=== PATIENT | male | born 1995 | race Two or more races ===

== ENCOUNTER 2023-08-13 19:47 | Emergency (ER) | payer SELFPAY ==
[~2023-08-13] VITALS: Ht 170.2 cm; Wt 65.0 kg
[2023-08-13 19:52] VITALS: BP 125/83; PULSE 77; RESP 16; O2SAT 97
[2023-08-14] MEDS ORDERED: MORPHINE SULFATE 4 MG/ML SYR/VIAL IV ONE (03:45)
[2023-08-14] MEDS ORDERED: SODIUM CHLORIDE 0.9% 1,000 ML IV ONE (03:45)
[2023-08-14] MEDS ORDERED: ONDANSETRON HCL 4 MG/2 ML VIAL IV ONE (03:45)
[2023-08-14 04:08] LABS: Basophils # (auto) 0 10 ^3/uL (0-0.2); Basophils % (auto) 0.6 % (0.0-2.0); Eosinophils # (auto) 0.2 10 ^3/uL (0-0.8); Eosinophils % (auto) 3.9 % (0.0-7.0); Hematocrit 42.4 % (41.0-53.0); Hemoglobin 14.1 g/dL (13.5-17.5); Lymphocytes # (auto) 1.9 10 ^3/uL (0.4-5.4); Lymphocytes % (auto) 38.8 % (10.0-50.0); Mean Corpuscular Hemoglobin 29.9 pg (28.0-32.0); Mean Corpuscular Hgb Conc. 33.3 g/dL (32.0-36.0); Mean Corpuscular Volume 89.8 fL (80.0-100.0); Monocytes # (auto) 0.5 10 ^3/uL (0-1.3); Monocytes % (auto) 9.6 % (0.0-12.0); Neutrophils # (auto) 2.3 10 ^3/uL (1.6-8.6); Neutrophils % (auto) 47.1 % (37.0-80.0); Nucleated Red Blood Cells % 0.1 %; Red Blood Cells 4.72 10^6/uL (4.5-5.90); Red Cell Distribution Width 14.2 % (11.8-14.3); White Blood Cell 4.9 10^3/uL (4.4-10.8)
[2023-08-14 04:42] LABS: Alanine Aminotransferase 43 U/L (7-40); Albumin 4.3 g/dL (3.2-4.8); Alkaline Phosphatase 71 U/L (46-116); Anion Gap 4 (5-15); Aspartate Aminotransferase 79 U/L (13-40); BUN/Creatinine Ratio 18.7 (10.0-20.0); Blood Urea Nitrogen 17 mg/dL (9-23); Calcium 9.7 mg/dL (8.7-10.4); Carbon Dioxide 29 mmol/L (20-30); Chloride 106 mmol/L (98-107); Glucose 101 mg/dL (74-106); Lipase 59 U/L (12-53); Sodium 139 mmol/L (136-145)
[2023-08-14 04:43] LABS: Bilirubin, Total 0.3 mg/dL (0.2-1.0); Total Protein 6.9 g/dL (5.7-8.2)
[2023-08-14] MEDS ORDERED: IBUP-1455 PO (06:04)
[2023-08-14] MEDS ORDERED: ZOFR4T PO (06:04)
[2023-08-14] MEDS ORDERED: OMEP-434 PO (06:04)
[2023-08-15] MEDS ORDERED: DICY10CA PO (01:36)
[2023-08-15] MEDS ORDERED: ZOFR4T PO (01:36)
[2023-08-15] MEDS ORDERED: ACET500T58 PO (01:36)
== END 2023-08-14 06:26 | disposition left against medical advice (07) ==
LOC: ER 19:47 → EDBD 19:47 → ER 08-14 02:32
DX: K85.90 Acute pancreatitis without necrosis or infection, unspecified (principal); F17.210 Nicotine dependence, cigarettes, uncomplicated; Z79.1 Long term (current) use of non-steroidal anti-inflammatories (NSAID); Z59.00 Homelessness unspecified; Z79.899 Other long term (current) drug therapy
CPT/HCPCS: 36415; 80053; 83605; 83690; 85025; 87040

== ENCOUNTER 2023-08-14 20:24 | Emergency (ER) | payer SELFPAY ==
[~2023-08-14 20:24] MED LIST: IBUP-1455 PO; OMEP-434 PO; ZOFR4T PO
[2023-08-15 00:03] LABS: Basophils # (auto) 0 10 ^3/uL (0-0.2); Basophils % (auto) 0.6 % (0.0-2.0); Eosinophils # (auto) 0.1 10 ^3/uL (0-0.8); Hematocrit 42.3 % (41.0-53.0); Hemoglobin 14.2 g/dL (13.5-17.5); Lymphocytes # (auto) 1.5 10 ^3/uL (0.4-5.4); Lymphocytes % (auto) 22.5 % (10.0-50.0); Mean Corpuscular Hemoglobin 29.9 pg (28.0-32.0); Mean Corpuscular Hgb Conc. 33.5 g/dL (32.0-36.0); Mean Corpuscular Volume 89.2 fL (80.0-100.0); Monocytes # (auto) 0.5 10 ^3/uL (0-1.3); Neutrophils # (auto) 4.3 10 ^3/uL (1.6-8.6); Neutrophils % (auto) 66.9 % (37.0-80.0); Red Blood Cells 4.74 10^6/uL (4.5-5.90); Red Cell Distribution Width 14.1 % (11.8-14.3); White Blood Cell 6.5 10^3/uL (4.4-10.8)
[2023-08-15 00:13] LABS: Chloride 105 mmol/L (98-107); Potassium 4.1 mmol/L (3.5-5.1); Sodium 136 mmol/L (136-145)
[2023-08-15] MEDS: ONDANSETRON ODT 4 MG TAB PO ONE (00:13)
[2023-08-15] MEDS: DICYCLOMINE HCL (10MG/ML) 2 ML AMPULE IM ONE (00:13)
[2023-08-15 00:14] LABS: Anion Gap 5 (5-15); Calcium 9.9 mg/dL (8.7-10.4); Carbon Dioxide 26 mmol/L (20-30)
[2023-08-15 00:19] LABS: BUN/Creatinine Ratio 18.8 (10.0-20.0); Blood Urea Nitrogen 16 mg/dL (9-23); Glucose 86 mg/dL (74-106); Lipase 46 U/L (12-53)
[2023-08-15 00:21] VITALS: BP 111/66; PULSE 66; RESP 16; TEMP 98.2; O2SAT 98
[2023-08-15] MEDS ORDERED: ACET500T58 PO (01:36)
[2023-08-15] MEDS ORDERED: ZOFR4T PO (01:36)
[2023-08-15] MEDS ORDERED: DICY10CA PO (01:36)
== END 2023-08-15 03:16 | disposition home or self-care (01) ==
LOC: ER 20:24
DX: A08.4 Viral intestinal infection, unspecified (principal); F17.210 Nicotine dependence, cigarettes, uncomplicated; Z98.890 Other specified postprocedural states; Z79.1 Long term (current) use of non-steroidal anti-inflammatories (NSAID); Z59.00 Homelessness unspecified
CPT/HCPCS: 36415; 80048; 83690; 85025; 96372; 99283; J0500; Q0162